=== PATIENT | male | born 1945 | race Two or more races ===

== ENCOUNTER 2023-01-04 19:01 | Emergency (ER) | payer OTHER | END 2023-01-04 20:48 | disposition left against medical advice (07) | LOC: ER 19:01 | DX: M79.10 Myalgia, unspecified site (principal); Z53.21 Procedure and treatment not carried out due to patient leaving prior to being seen by health care provider ==

== ENCOUNTER 2023-12-16 08:16 | Emergency (ER) | payer OTHER ==
[~2023-12-16] VITALS: Ht 177.8 cm; Wt 122.7 kg
[2023-12-16 08:37] LABS: Basophils # (auto) 0 10 ^3/uL (0-0.2); Basophils % (auto) 0.3 % (0.0-2.0); Eosinophils # (auto) 0 10 ^3/uL (0-0.8); Hematocrit 39.8 % (41.0-53.0); Lymphocytes # (auto) 1.4 10 ^3/uL (0.4-5.4); Lymphocytes % (auto) 37.9 % (10.0-50.0); Mean Corpuscular Hemoglobin 31.9 pg (28.0-32.0); Mean Corpuscular Hgb Conc. 32.6 g/dL (32.0-36.0); Mean Corpuscular Volume 97.8 fL (80.0-100.0); Monocytes # (auto) 0.4 10 ^3/uL (0-1.3); Monocytes % (auto) 10.8 % (0.0-12.0); Neutrophils # (auto) 1.8 10 ^3/uL (1.6-8.6); Red Blood Cells 4.08 10^6/uL (4.5-5.90); Red Cell Distribution Width 15.9 % (11.8-14.3); White Blood Cell 3.7 10^3/uL (4.4-10.8)
[2023-12-16 08:49] LABS: Alanine Aminotransferase 29 U/L (7-40); Albumin 4.2 g/dL (3.2-4.8); Alkaline Phosphatase 47 U/L (46-116); Anion Gap 3 (5-15); Aspartate Aminotransferase 16 U/L (13-40); BUN/Creatinine Ratio 18.5 (10.0-20.0); Bilirubin, Total 0.6 mg/dL (0.2-1.0); Blood Urea Nitrogen 15 mg/dL (9-23); Calcium 9.9 mg/dL (8.5-10.1); Carbon Dioxide 35 mmol/L (20-30); Chloride 104 mmol/L (98-107); Glucose 216 mg/dL (74-106); Potassium 3.3 mmol/L (3.5-5.1); Sodium 142 mmol/L (136-145); Total Protein 6.3 g/dL (5.7-8.2)
[2023-12-16 08:52] VITALS: PULSE 90; RESP 18; O2SAT 92
[2023-12-16 08:55] VITALS: TEMP 97.8
[2023-12-16 09:14] LABS: Urine Bacteria None Seen /hpf (None Seen)
[2023-12-16 09:30] LABS: Urine Blood Negative /uL (Negative); Urine Clarity Clear (Clear); Urine Hyaline Cast FEW /lpf (0 - 2); Urine Protein, UAD Negative (Negative); Urine Specific Gravity 1.009 (1.001-1.035); Urine Urobilinogen Normal (Negative); Urine WBC <1 /hpf (0 - 3); Urine pH 5.5 (5.0-9.0)
[2023-12-16 09:31] LABS: Urine Color Light Yellow (Yellow)
[2023-12-16] MEDS: POTASSIUM CHL 20 Meq TABLET PO ONE (11:46)
[2023-12-16] MEDS ORDERED: CARV6.2517 PO ×2 (11:58→12:35)
[2023-12-16 12:01] VITALS: BP 123/66; PULSE 92; RESP 22; O2SAT 97
== END 2023-12-16 11:41 | disposition admitted as inpatient to this hospital (09) ==
LOC: ER 08:21
DX: I48.91 Unspecified atrial fibrillation (principal); I11.0 Hypertensive heart disease with heart failure; I50.9 Heart failure, unspecified; E11.65 Type 2 diabetes mellitus with hyperglycemia; J44.9 Chronic obstructive pulmonary disease, unspecified; Z85.9 Personal history of malignant neoplasm, unspecified; Z87.891 Personal history of nicotine dependence; Z88.8 Allergy status to other drugs, medicaments and biological substances; Z79.899 Other long term (current) drug therapy
CPT/HCPCS: 36415; 71045; 80053; 81001; 82962; 83735; 84484; 85025; 93005

== ENCOUNTER 2025-04-22 12:04 | Emergency (ER) | payer MEDICARE, OTHER ==
[~2025-04-22] VITALS: Ht 177.8 cm; Wt 110.0 kg
[~2025-04-22 12:04] MED LIST: ALBU2TAB11 IN; AMIO200T33 PO; APIX5TAB PO; BACL10TA PO; CARV6.2517 PO; FURO20TA3 PO; GLIM2TAB33 PO; HYDR-4798 PO; LEVO500T91 PO; METF-370 PO; METH4PAK PO; METO-289 PO
[2025-04-22 12:12] VITALS: TEMP 97.2
[2025-04-22] MEDS ORDERED: HYDROcodone-ACET 10/325MG TAB PO ONE (13:00)
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
[2025-04-22] MEDS ORDERED: MORPHINE SULFATE INJ 2 MG/ml SYRG IM ONE (13:15)
[2025-04-22] MEDS: MORPHINE SULFATE 4 MG/ML SYR/VIAL IM ONE (13:31)
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
[2025-04-22] MEDS ORDERED: CEPH500C PO (14:41)
[2025-04-22] MEDS ORDERED: METH-1182 PO (14:45)
[2025-04-22 14:49] VITALS: BP 144/80; PULSE 65; RESP 20; O2SAT 97
== END 2025-04-22 14:51 | disposition home or self-care (01) ==
LOC: ER 12:04
DX: S22.31XA Fracture of one rib, right side, initial encounter for closed fracture (principal); S51.811A Laceration without foreign body of right forearm, initial encounter; I11.0 Hypertensive heart disease with heart failure; I50.9 Heart failure, unspecified; J44.9 Chronic obstructive pulmonary disease, unspecified; E11.9 Type 2 diabetes mellitus without complications; Z79.899 Other long term (current) drug therapy; Z88.1 Allergy status to other antibiotic agents; Z88.2 Allergy status to sulfonamides; V89.2XXA Person injured in unspecified motor-vehicle accident, traffic, initial encounter; Y93.I9 Activity, other involving external motion; Y92.488 Other paved roadways as the place of occurrence of the external cause; Y99.8 Other external cause status
CPT/HCPCS: 71101; 73130; 96372; 99284; J2270